=== PATIENT | male | born 1980 | race Caucasian/White ===

== ENCOUNTER 2022-11-25 16:07 | Inpatient (IN) | payer MEDICAID ==
[~2022-11-25] VITALS: Ht 172.7 cm; Wt 84.8 kg
[2022-11-25] MEDS ORDERED: SODIUM CHLORIDE 0.9% 1,000 ML IV ONE (17:15)
[2022-11-25] MEDS ORDERED: KETOROLAC 30MG/ML VIAL IV ONE (17:15)
[2022-11-25 17:39] LABS: BASOPHILS % 0.3 % (0.0-2.0); EOSINOPHILS % 0.4 % (0.0-5.0); HEMATOCRIT. 44.4 % (42.0-52.0); HEMOGLOBIN. 14.8 g/dL (14.0-18.0); LYMPHOCYTES % 21.2 % (20.0-50.0); MEAN CORPUSCULAR HEMOGLOBIN 30.2 pg (28.0-32.0); MEAN CORPUSCULAR VOLUME 90.6 fL (80.0-94.0); MEAN PLATELET VOLUME 8.1 fl (7.4-10.4); MONOCYTES % 4.9 % (2.0-8.0); NEUTROPHILS % 73.2 % (40.0-76.0); PLATELET 258 x1000/uL (130-400); RED BLOOD CELL COUNT 4.91 mill/uL (4.7-6.1); RED CELL DISTRIBUTION WIDTH 14.3 % (11.6-14.6)
[2022-11-25 17:49] LABS: CHLORIDE 105 mEq/L (98-107)
[2022-11-25] MEDS ORDERED: ENOXAPARIN 40MG/0.4ML SYR SUBCUT ONE (19:00)
[2022-11-25] MEDS ORDERED: KETOROLAC 30MG/ML VIAL IV NR (20:30)
[2022-11-25] MEDS ORDERED: ONDANSETRON HCL 4MG/2ML INJ IV PRN (23:15)
[2022-11-25] MEDS ORDERED: CLONIDINE 0.1MG TABLET PO PRN (23:15)
[2022-11-25] MEDS ORDERED: ACETAMINOPHEN 325MG TABLET PO PRN ×2 (23:15)
[2022-11-25] MEDS ORDERED: IPRATROPIUM/ALBUTEROL 0.5-3(2.5)MG/3ML NEB NEB PRN (23:15)
[2022-11-25] MEDS ORDERED: DOCUSATE SODIUM 100MG CAPSULE PO PRN (23:15)
[2022-11-25] MEDS ORDERED: MAGNESIUM/ALUMINUM HYDROXIDE/SIMETHICONE 30ML UDC PO PRN (23:15)
[2022-11-26 03:24] LABS: BASOPHILS % 0.5 % (0.0-2.0); EOSINOPHILS % 0.3 % (0.0-5.0); HEMATOCRIT. 42.7 % (42.0-52.0); HEMOGLOBIN. 14.4 g/dL (14.0-18.0); LYMPHOCYTES % 26.2 % (20.0-50.0); MEAN CORPUSCULAR HEMOGLOBIN 30.2 pg (28.0-32.0); MEAN CORPUSCULAR VOLUME 89.8 fL (80.0-94.0); MEAN PLATELET VOLUME 8.2 fl (7.4-10.4); MONOCYTES % 8.3 % (2.0-8.0); NEUTROPHILS % 64.7 % (40.0-76.0); PLATELET 227 x1000/uL (130-400); RED BLOOD CELL COUNT 4.76 mill/uL (4.7-6.1); RED CELL DISTRIBUTION WIDTH 14.4 % (11.6-14.6)
[2022-11-26 03:31] LABS: CHLORIDE 109 mEq/L (98-107)
[2022-11-26 03:43] LABS: INR 1.1; PROTHROMBIN TIME 11.9 sec (9.6-11.0)
[2022-11-26 03:45] LABS: HDL CHOLESTEROL 37 mg/dL (40-59); LDL CHOLESTEROL 107 mg/dL (5-100); T4 FREE 1.21 ng/dL (0.76-1.46)
[2022-11-26 06:53] LABS: CREATINE KINASE MB FRACTION 129.8 ng/mL (0.5-3.6); PHOSPHORUS 4.6 mg/dL (2.5-4.9)
[2022-11-26] MEDS: ENOXAPARIN 120MG/0.8ML SYR SUBCUT SCH ×2 (07:00→19:14)
[2022-11-26] MEDS ORDERED: FUROSEMIDE 20MG/2ML VIAL IVP NR (07:15)
[2022-11-26] MEDS: ASPIRIN 81MG TABLET PO SCH (09:00)
[2022-11-26] MEDS ORDERED: APIXABAN 5 MG TABLET PO SCH (09:00)
[2022-11-26] MEDS ORDERED: METOPROLOL TARTRATE 25MG TABLET PO SCH (09:00)
[2022-11-26] MEDS: AMLODIPINE 5MG TABLET PO SCH (09:00)
[2022-11-26 09:39] LABS: PHOSPHORUS 4.4 mg/dL (2.5-4.9)
[2022-11-26 18:45] VITALS: BP 135/78
[2022-11-26 19:02] VITALS: BP 135/79
[2022-11-26 19:55] VITALS: BP 124/84
[2022-11-26] MEDS ORDERED: FAMOTIDINE 20MG TABLET PO SCH (21:00)
[2022-11-26] MEDS ORDERED: ATORVASTATIN CALCIUM 40MG TABLET PO SCH (21:00)
[2022-11-26] MEDS: KETOROLAC 10MG TABLET PO PRN (21:30)
[2022-11-26 23:49] VITALS: BP 139/84
[2022-11-26 23:51] VITALS: BP 133/105
[2022-11-26 23:52] VITALS: BP 135/97
[2022-11-27 00:24] LABS: CREATINE KINASE MB FRACTION 154.3 ng/mL (0.5-3.6)
[2022-11-27 01:24] LABS: CLARITY URINE CLEAR (CLEAR); COLOR URINE YELLOW (YELLOW); KETONES URINE NEGATIVE (NEGATIVE); LEUKOCYTE ESTERASE URINE NEGATIVE (NEGATIVE); NITRITE URINE NEGATIVE (NEGATIVE); OCCULT BLOOD URINE 1+ (NEGATIVE); PH URINE 5.5 (4.5-8.0); PROTEIN URINE 2+ (NEGATIVE); SPECIFIC GRAVITY URINE 1.013 (1.005-1.030); UROBILINOGEN URINE 0.2 E.U./dL (0.2-1.0)
[2022-11-27 03:42] VITALS: BP 139/91
[2022-11-27] MEDS: KETOROLAC 10MG TABLET PO PRN ×2 (03:56→11:47)
[2022-11-27 04:36] LABS: *AMPHETAMINES SCREEN URINE NEGATIVE (NEGATIVE); *BARBITURATES SCREEN URINE NEGATIVE (NEGATIVE); *BENZODIAZEPINES SCREEN URINE NEGATIVE (NEGATIVE); *COCAINE SCREEN URINE NEGATIVE (NEGATIVE); CANNABINOID URINE SCREEN NEGATIVE (NEGATIVE); METHADONE URINE SCREEN NEGATIVE (NEGATIVE); OPIATES URINE SCREEN NEGATIVE (NEGATIVE); PHENCYCLIDINE URINE SCREEN NEGATIVE (NEGATIVE)
[2022-11-27] MEDS: ENOXAPARIN 120MG/0.8ML SYR SUBCUT SCH (07:00)
[2022-11-27] MEDS ORDERED: TOPXL5 PO (08:46)
[2022-11-27] MEDS ORDERED: APIX5TAB PO (08:46)
[2022-11-27 09:30] VITALS: BP 138/96
[2022-11-27] MEDS: ASPIRIN 81MG TABLET PO SCH (09:32)
[2022-11-27] MEDS: AMLODIPINE 5MG TABLET PO SCH (09:37)
[2022-11-27] MEDS ORDERED: VERAPAMIL HCL 2.5 MG/1 ML 2ML VIAL IV ONE (09:49)
[2022-11-27] MEDS ORDERED: IODIXANOL 320MG/ML 100 ML BOTTLE IV ONE (09:49)
[2022-11-27] MEDS ORDERED: LIDOCAINE HCL/PF 1% 10 MG/ML 5ML VIAL ONE (09:49)
[2022-11-27] MEDS ORDERED: DIPHENHYDRAMINE 50MG/ML VIAL ONE (09:49)
[2022-11-27] MEDS ORDERED: HEPARIN 1000 UNITS/ML 10ML ONE (09:49)
[2022-11-27] MEDS ORDERED: FENTANYL CITRATE/PF 50MCG/ML 2ML VIAL ONE (10:16)
[2022-11-27] MEDS ORDERED: MIDAZOLAM HCL 2 MG/2 ML VIAL ONE (10:16)
[2022-11-27] MEDS ORDERED: NICARDIPINE 100MCG/ML 10ML VIAL (CATH LAB) IV ONE (11:23)
[2022-11-27] MEDS ORDERED: NITROGLYCERIN 50MCG/ML 10ML VIAL (CATH LAB) IV ONE (11:23)
[2022-11-27] MEDS ORDERED: ACETAMINOPHEN 325MG TABLET PO PRN (11:30)
[2022-11-27] MEDS ORDERED: ATROPINE SULFATE 1MG/10ML SYR IV PRN (11:30)
[2022-11-27 12:00] VITALS: BP 129/97
[2022-11-27 13:25] LABS: HEPATITIS B SURFACE ANTIGEN NEGATIVE
[2022-11-27 15:01] VITALS: BP 129/97
[2022-11-27 16:00] VITALS: BP 129/97
[2022-11-27] MEDS ORDERED: INFLUENZA VACCINE 05/PF 0.5 ML SYRINGE IM ONE (21:00)
== END 2022-11-27 18:51 | disposition home or self-care (01) | DRG 190 ==
LOC: ER 16:07 → MICUSO 20:52 → EDBEDREQ 22:50 → EDBEDREQTM 22:50 → EDBEDREQ 22:51 → 3WST 11-26 19:31
PROVIDERS: ADMIT Hospitalist; ATTEND Hospitalist
PROC: 4A023N7 Measurement of Cardiac Sampling and Pressure, Left Heart, Percutaneous Approach (ICD-10-PCS; principal; 2022-11-27)
PROC: B2111ZZ Fluoroscopy of Multiple Coronary Arteries using Low Osmolar Contrast (ICD-10-PCS; 2022-11-27)
DX: I21.4 Non-ST elevation (NSTEMI) myocardial infarction (principal); I11.0 Hypertensive heart disease with heart failure; I50.9 Heart failure, unspecified; D72.829 Elevated white blood cell count, unspecified; F17.210 Nicotine dependence, cigarettes, uncomplicated; Z20.822 Contact with and (suspected) exposure to COVID-19; I48.91 Unspecified atrial fibrillation; I25.10 Atherosclerotic heart disease of native coronary artery without angina pectoris; Z88.0 Allergy status to penicillin; Z95.810 Presence of automatic (implantable) cardiac defibrillator; Z79.899 Other long term (current) drug therapy; Z79.01 Long term (current) use of anticoagulants; W18.30XA Fall on same level, unspecified, initial encounter; Y93.89 Activity, other specified; Y92.89 Other specified places as the place of occurrence of the external cause; Y99.8 Other external cause status
CPT/HCPCS: 36415; 71045; 80053; 80061; 80305; 81003; 82550; 82553; 83036; 83735; 83880; 84100; 84145; 84439; 84443; 84481; 84484; 85025; 86803; 87340; 87426; 90686; 93005; 93306; 93458; 93923; 93970; 99291; C1769; C1887; C1893; J1200; J1644; J1650; J1885; J1940; J2250; J3010; J3490; J7030; Q9967